=== PATIENT | male | born 1945 | race Caucasian/White ===

== ENCOUNTER 2023-04-20 01:04 | Inpatient (IN) | payer MEDICARE, BC ==
[~2023-04-20] VITALS: Ht 172.7 cm; Wt 83.0 kg
[2023-04-20] MEDS ORDERED: LISI2.5T14 PO (01:46)
[2023-04-20] MEDS ORDERED: METO25TA6 PO (01:46)
[2023-04-20] MEDS ORDERED: AMIO100T4 PO (01:46)
[2023-04-20] MEDS ORDERED: APIX5TAB PO (01:46)
[2023-04-20] MEDS ORDERED: DEXL30CA3 PO (01:46)
[2023-04-20] MEDS ORDERED: HYDROMORPHONE 1 MG/1 ML DISP.SYRIN IV ONE ×2 (03:00→06:30)
[2023-04-20] MEDS ORDERED: ONDANSETRON 4 MG/2 ML VIAL IV ONE (03:00)
[2023-04-20] MEDS ORDERED: HYDROMORPHONE 1 MG/1 ML DISP.SYRIN ONE ×3 (03:06→18:51)
[2023-04-20] MEDS ORDERED: ONDANSETRON 4 MG/2 ML VIAL ONE ×2 (03:06→17:18)
[2023-04-20] MEDS ORDERED: IV NORMAL SALINE 1000 ML BAG IV ONE ×2 (03:15→06:30)
[2023-04-20 03:20] LABS: BASOPHILS # (AUTO) 0.1 K/UL (0.0-0.2); BASOPHILS % (AUTO) 0.6 % (0.0-2.0); EOSINOPHILS # (AUTO) 0.1 K/uL (0.0-0.7); EOSINOPHILS % (AUTO) 0.7 % (0.0-7.0); HEMATOCRIT 42.5 % (36.7-47.1); LYMPHOCYTES # (AUTO) 1.4 K/uL (0.8-4.8); MEAN CORPUSCULAR HEMOGLOBIN 27.7 uug (23.8-33.4); MEAN CORPUSCULAR HGB CONC 33 g/dL (32.5-36.3); MEAN CORPUSCULAR VOLUME 84.1 fL (73.0-96.2); MONOCYTES # (AUTO) 0.7 K/uL (0.1-1.30); MONOCYTES % (AUTO) 7.9 % (0.0-11.0); NEUTROPHILS % (AUTO) 75.8 % (38.5-71.5); PLATELET COUNT (AUTO) 274 K/uL (152-348); RED BLOOD CELL COUNT(AUTO) 5.06 MIL/uL (4.06-5.63); RED CELL DISTRIBUTION WIDTH 16.5 % (12.1-16.2); WHITE BLOOD COUNT (AUTO) 9.2 K/uL (3.6-10.2)
[2023-04-20 03:22] LABS: DIFFERENTIAL COMMENT 1
[2023-04-20 03:35] LABS: ALANINE AMINOTRANSFERASE 23 U/L (16-63); ALBUMIN 3.5 g/dL (3.4-5.0); ALKALINE PHOSPHATASE 88 U/L (50-136); ASPARTATE AMINOTRANSFERASE 10 U/L (15-37); BILIRUBIN,DIRECT 0.2 mg/dL (0.0-0.2); BILIRUBIN,TOTAL 0.6 mg/dL (0.2-1.0); CALCIUM 8.6 mg/dL (8.5-10.1); CARBON DIOXIDE 27 mmol/L (21-32); CHLORIDE 101 mmol/L (98-107); GLUCOSE 115 mg/dL (74-106); LIPASE 83 U/L (16-77); SODIUM SERUM 139 mmol/L (136-145); TOTAL PROTEIN, SERUM 7.4 g/dL (6.4-8.2); UREA NITROGEN, BLOOD 24 mg/dL (7-18)
[2023-04-20] MEDS ORDERED: IV NORMAL SALINE 250 ML IV ONE (04:21)
[2023-04-20] MEDS ORDERED: SWABABLE VALVE TRANSFER SET EA MC ONE (04:21)
[2023-04-20] MEDS ORDERED: IOHEXOL 350 100 ML INFUS..BTL ONE (04:21)
[2023-04-20 05:14] LABS: *BILIRUBIN,URIN NEGATIVE (NEGATIVE); *BLOOD, URINE NEGATIVE (NEGATIVE); *CLARITY,URINE CLEAR (CLEAR); *COLOR,URINE YELLOW (YELLOW); *KETONES,URINE NEGATIVE (NEGATIVE); *PROTEIN,URINE NEGATIVE (NEGATIVE); *UROBILINOGEN,URINE 0.2 E.U./dl (NORMAL); LEUKOCYTE ESTERASE ,URINE NEGATIVE (NEGATIVE); NITRITE, URINE NEGATIVE (NEGATIVE); PH,URINE 5.5 (5.0-8.0); UGLUCOSE NEGATIVE (NEGATIVE)
[2023-04-20 05:16] LABS: *OCCULT BLOOD STOOL NEGATIVE (NEGATIVE)
[2023-04-20] MEDS ORDERED: PIPERACILLIN SODIUM/TAZOBACTAM 3.375 G in IV DEXTROSE 5% 50 ML IV ONE (07:15)
[2023-04-20] MEDS ORDERED: PIPERACILLIN/TAZOBACTAM/D5W 50 ML IV ONE (07:20)
[2023-04-20] MEDS ORDERED: AMIODARONE HCL 200 MG TABLET ONE (08:59)
[2023-04-20] MEDS ORDERED: METOPROLOL TARTRATE 50 MG TABLET ONE (08:59)
[2023-04-20] MEDS ORDERED: METOPROLOL TARTRATE 50 MG TABLET PO SCH (09:00)
[2023-04-20] MEDS ORDERED: AMIODARONE HCL 200 MG TABLET PO SCH ×2 (09:00→20:15)
[2023-04-20] MEDS ORDERED: MIDAZOLAM HCL 2 MG/2 ML VIAL ONE (15:17)
[2023-04-20] MEDS ORDERED: ROCURONIUM BROMIDE 50 MG/5 ML VIAL ONE (15:18)
[2023-04-20] MEDS ORDERED: FAMOTIDINE. 20 MG/2 ML VIAL IV ONE (15:18)
[2023-04-20] MEDS ORDERED: FENTANYL CITRATE 250 MCG/5 ML AMPUL ONE (15:18)
[2023-04-20 15:51] VITALS: BP 150/53; TEMP 98.3; O2SAT 95
[2023-04-20] MEDS ORDERED: DEXL60CA3 PO (15:53)
[2023-04-20] MEDS ORDERED: LISI-782 PO (15:55)
[2023-04-20] MEDS ORDERED: ATOR80TA PO (15:56)
[2023-04-20] MEDS ORDERED: EZET10TA15 PO (15:56)
[2023-04-20] MEDS ORDERED: IBUP-1957 PO (15:57)
[2023-04-20] MEDS ORDERED: HYDR-3980 PO ×2 (15:58)
[2023-04-20] MEDS ORDERED: ALPR1TAB7 PO (15:59)
[2023-04-20] MEDS ORDERED: LIDOCAINE-MPF 2% 5 ML VIAL ONE (17:18)
[2023-04-20] MEDS ORDERED: NEOSTIGMINE METHYLSULFATE 10 MG/10 ML VIAL ONE (17:18)
[2023-04-20] MEDS ORDERED: CEFAZOLIN 1 G VIAL ONE (17:18)
[2023-04-20] MEDS ORDERED: GLYCOPYRROLATE 0.2 MG/ML VIAL ONE (17:18)
[2023-04-20] MEDS ORDERED: DEXAMETHASONE SOD PHOSPHATE 4 MG INJ ONE (17:18)
[2023-04-20] MEDS ORDERED: PROPOFOL 200 MG/20 ML BOTTLE ONE (17:18)
[2023-04-20] MEDS ORDERED: METOCLOPRAMIDE HCL 10 MG/2 ML VIAL ONE (17:18)
[2023-04-20] MEDS ORDERED: ACETAMINOPHEN 650 MG SUPP.RECT RC PRN (18:15)
[2023-04-20] MEDS ORDERED: PIPERACILLIN SODIUM/TAZOBACTAM 3.375 G in IV DEXTROSE 5% 50 ML IV SCH (18:15)
[2023-04-20] MEDS ORDERED: ONDANSETRON 4 MG/2 ML VIAL IV PRN (18:15)
[2023-04-20] MEDS ORDERED: IV D5 1/2 NS 1000 ML 1,000 ML IV PRN (18:15)
[2023-04-20] MEDS ORDERED: MORPHINE SULFATE 2 MG/1 ML DISP.SYRIN IV PRN (18:15)
[2023-04-20] MEDS ORDERED: HYDROMORPHONE 1 MG/1 ML DISP.SYRIN IV PRN (20:15)
[2023-04-20] MEDS ORDERED: IV LACTATED RINGERS SOLUTION 1,000 ML IV SCH (20:15)
[2023-04-20] MEDS ORDERED: APIXABAN 5 MG TABLET PO SCH (20:28)
[2023-04-20] MEDS: GABAPENTIN 100 MG CAPSULE PO SCH ×2 (20:49→21:47)
[2023-04-20] MEDS: CELECOXIB 200 MG CAPSULE PO SCH (20:53)
[2023-04-20] MEDS: ACETAMINOPHEN 325 MG TABLET PO SCH ×2 (20:54→21:47)
[2023-04-20 21:00] VITALS: BP 139/57; TEMP 97.8; O2SAT 95
[2023-04-20] MEDS: METOPROLOL TARTRATE 25 MG TABLET PO SCH (21:00)
[2023-04-20] MEDS: PIPERACILLIN SODIUM/TAZOBACTAM 3.375 G in IV DEXTROSE 5% 100 ML IV SCH (21:44)
[2023-04-20 23:48] VITALS: BP 124/62; TEMP 97.7; O2SAT 97
[2023-04-21 01:43] VITALS: O2SAT 97
[2023-04-21] MEDS: PIPERACILLIN SODIUM/TAZOBACTAM 3.375 G in IV DEXTROSE 5% 100 ML IV SCH ×3 (05:05→22:05)
[2023-04-21] MEDS: ACETAMINOPHEN 325 MG TABLET PO SCH ×3 (05:05→22:05)
[2023-04-21] MEDS: GABAPENTIN 100 MG CAPSULE PO SCH ×3 (05:05→22:05)
[2023-04-21 06:58] VITALS: BP 131/67; TEMP 98.1; O2SAT 98
[2023-04-21 07:21] LABS: BASOPHILS % (AUTO) 0.7 % (0.0-2.0); EOSINOPHILS % (AUTO) 0.4 % (0.0-7.0); HEMATOCRIT 37.4 % (36.7-47.1); HEMOGLOBIN 12.1 g/dL (12.5-16.3); LYMPHOCYTES # (AUTO) 0.2 K/uL (0.8-4.8); LYMPHOCYTES % (AUTO) 3.7 % (20.5-51.5); MEAN CORPUSCULAR HEMOGLOBIN 27.4 uug (23.8-33.4); MEAN CORPUSCULAR HGB CONC 32 g/dL (32.5-36.3); MEAN CORPUSCULAR VOLUME 84.8 fL (73.0-96.2); MONOCYTES # (AUTO) 0.4 K/uL (0.1-1.30); MONOCYTES % (AUTO) 5.3 % (0.0-11.0); NEUTROPHILS % (AUTO) 89.9 % (38.5-71.5); PLATELET COUNT (AUTO) 264 K/uL (152-348); RED BLOOD CELL COUNT(AUTO) 4.41 MIL/uL (4.06-5.63); RED CELL DISTRIBUTION WIDTH 16.5 % (12.1-16.2); WHITE BLOOD COUNT (AUTO) 6.7 K/uL (3.6-10.2)
[2023-04-21 07:32] LABS: DIFFERENTIAL COMMENT 1
[2023-04-21 07:42] LABS: THYROID STIMULATING HORMONE 0.371 mIU/mL (0.358-3.740)
[2023-04-21 07:47] LABS: ALBUMIN 2.7 g/dL (3.4-5.0); BILIRUBIN,TOTAL 0.4 mg/dL (0.2-1.0); CALCIUM 8.2 mg/dL (8.5-10.1); CREATININE 0.9 mg/dL (0.6-1.3); MAGNESIUM 2.2 mg/dL (1.8-2.4); PHOSPHOROUS 4.2 mg/dL (2.5-4.9); POTASSIUM 4.5 mmol/L (3.5-5.1); TOTAL PROTEIN, SERUM 6.2 g/dL (6.4-8.2)
[2023-04-21 08:00] VITALS: BP 131/62; TEMP 98.2; O2SAT 99
[2023-04-21] MEDS: CELECOXIB 200 MG CAPSULE PO SCH ×2 (08:23→22:05)
[2023-04-21] MEDS: METOPROLOL TARTRATE 25 MG TABLET PO SCH ×2 (08:41→21:00)
[2023-04-21] MEDS: AMIODARONE HCL 200 MG TABLET PO SCH (08:41)
[2023-04-21] MEDS ORDERED: AMIODARONE HCL 200 MG TABLET PO SCH (09:00)
[2023-04-21] MEDS ORDERED: PANTOPRAZOLE SODIUM 40 MG VIAL IV SCH (09:00)
[2023-04-21] MEDS: APIXABAN 5 MG TABLET PO SCH ×2 (10:32→22:07)
[2023-04-21 12:00] VITALS: BP 130/92; TEMP 98.1; O2SAT 95
[2023-04-21 16:00] VITALS: BP 123/55; TEMP 97.9; O2SAT 93
[2023-04-21 20:15] VITALS: BP 123/55; TEMP 97.6; O2SAT 93
[2023-04-22] VITALS (7 sets, daily range): BP systolic 108–145; BP diastolic 56–74; TEMP 97.4–98.5; O2SAT 95–99
[2023-04-22] MEDS: GABAPENTIN 100 MG CAPSULE PO SCH ×3 (06:02→21:33)
[2023-04-22] MEDS: ACETAMINOPHEN 325 MG TABLET PO SCH ×3 (06:02→21:42)
[2023-04-22] MEDS: PIPERACILLIN SODIUM/TAZOBACTAM 3.375 G in IV DEXTROSE 5% 100 ML IV SCH ×3 (06:03→21:34)
[2023-04-22 07:45] LABS: BASOPHILS % (AUTO) 0.3 % (0.0-2.0); EOSINOPHILS % (AUTO) 0.6 % (0.0-7.0); HEMATOCRIT 34.6 % (36.7-47.1); HEMOGLOBIN 11.3 g/dL (12.5-16.3); LYMPHOCYTES # (AUTO) 1.3 K/uL (0.8-4.8); LYMPHOCYTES % (AUTO) 18.3 % (20.5-51.5); MEAN CORPUSCULAR HEMOGLOBIN 27.9 uug (23.8-33.4); MEAN CORPUSCULAR HGB CONC 33 g/dL (32.5-36.3); MEAN CORPUSCULAR VOLUME 85.4 fL (73.0-96.2); MONOCYTES # (AUTO) 0.7 K/uL (0.1-1.30); MONOCYTES % (AUTO) 10.1 % (0.0-11.0); NEUTROPHILS % (AUTO) 70.7 % (38.5-71.5); PLATELET COUNT (AUTO) 258 K/uL (152-348); RED BLOOD CELL COUNT(AUTO) 4.06 MIL/uL (4.06-5.63); RED CELL DISTRIBUTION WIDTH 16.1 % (12.1-16.2)
[2023-04-22 07:55] LABS: DIFFERENTIAL COMMENT 1
[2023-04-22] MEDS: METOPROLOL TARTRATE 25 MG TABLET PO SCH ×2 (08:01→21:00)
[2023-04-22] MEDS: CELECOXIB 200 MG CAPSULE PO SCH ×2 (08:01→21:33)
[2023-04-22] MEDS: APIXABAN 5 MG TABLET PO SCH ×2 (08:02→21:46)
[2023-04-22] MEDS: AMIODARONE HCL 200 MG TABLET PO SCH (08:03)
[2023-04-22 08:13] LABS: CALCIUM 8.3 mg/dL (8.5-10.1); CARBON DIOXIDE 25 mmol/L (21-32); CHLORIDE 106 mmol/L (98-107); CREATININE 1.1 mg/dL (0.6-1.3); GLUCOSE 116 mg/dL (74-106); MAGNESIUM 2.3 mg/dL (1.8-2.4); PHOSPHOROUS 2.7 mg/dL (2.5-4.9); SODIUM SERUM 139 mmol/L (136-145); UREA NITROGEN, BLOOD 22 mg/dL (7-18)
[2023-04-22] MEDS ORDERED: LACTULOSE 20 G/30 ML LIQUID UDC PO ONE (08:30)
[2023-04-22] MEDS ORDERED: BISACODYL 5 MG TABLET.DR PO ONE (08:30)
[2023-04-22] MEDS: PANTOPRAZOLE SODIUM 40 MG TABLET.DR PO SCH (08:39)
[2023-04-22] MEDS ORDERED: HYDROCODONE/APAP 5-325MG TABLET PO PRN (16:45)
[2023-04-23 05:30] VITALS: BP 155/70; TEMP 98.2; O2SAT 96
[2023-04-23] MEDS: ACETAMINOPHEN 325 MG TABLET PO SCH (05:43)
[2023-04-23] MEDS: GABAPENTIN 100 MG CAPSULE PO SCH (05:43)
[2023-04-23] MEDS: PIPERACILLIN SODIUM/TAZOBACTAM 3.375 G in IV DEXTROSE 5% 100 ML IV SCH (05:50)
[2023-04-23] MEDS: PANTOPRAZOLE SODIUM 40 MG TABLET.DR PO SCH (06:30)
[2023-04-23 08:03] VITALS: BP 150/68
[2023-04-23] MEDS: AMIODARONE HCL 200 MG TABLET PO SCH (08:03)
[2023-04-23] MEDS: CELECOXIB 200 MG CAPSULE PO SCH (08:03)
[2023-04-23] MEDS: METOPROLOL TARTRATE 25 MG TABLET PO SCH (08:03)
[2023-04-23] MEDS: APIXABAN 5 MG TABLET PO SCH (08:04)
== END 2023-04-23 11:00 | disposition home or self-care (01) | DRG 397 ==
LOC: ER 01:15 → TRANSITION 11:20 → MEDSURG3 15:17 → TELE3 21:45 → MEDSURG3 04-22 08:36
PROVIDERS: ADMIT Internal Medicine; ATTEND Internal Medicine
PROC: 0DTJ4ZZ Resection of Appendix, Percutaneous Endoscopic Approach (ICD-10-PCS; principal; 2023-04-20)
DX: K35.80 Unspecified acute appendicitis (principal); K85.90 Acute pancreatitis without necrosis or infection, unspecified; I48.0 Paroxysmal atrial fibrillation; K59.00 Constipation, unspecified; I25.10 Atherosclerotic heart disease of native coronary artery without angina pectoris; Z95.5 Presence of coronary angioplasty implant and graft; I25.2 Old myocardial infarction; E66.9 Obesity, unspecified; I10 Essential (primary) hypertension; E78.00 Pure hypercholesterolemia, unspecified; Z68.27 Body mass index [BMI] 27.0-27.9, adult; Z79.01 Long term (current) use of anticoagulants; Z87.891 Personal history of nicotine dependence; Z79.899 Other long term (current) drug therapy; R00.1 Bradycardia, unspecified
CPT/HCPCS: 36415; 71045; 83550; 83690; 83735; 84100; 84443; 84484; 85025; 87040; 93005; A4606; A4663; C9113; G0378; J0690; J1100; J1170; J2250; J2405; J2543; J2765; J3010; J3490; J7040; J7120; L8699; Q9967